=== PATIENT | male | born 2000 | race Caucasian/White ===

== ENCOUNTER 2018-10-07 17:19 | Emergency (ER) | payer BC, SELFPAY ==
[2018-10-07 17:20] VITALS: BP 142/85; PULSE 103; RESP 16; TEMP 36.7; O2SAT 95; BMI 19.0
--- NOTE | 2018-10-07 18:03 | EKG12_ITS ---
Test Reason : SEIZURE Blood Pressure : / mmHG Vent. Rate : 088 BPM Atrial Rate : 088 BPM P-R Int : 162 ms QRS Dur : 104 ms QT Int : 368 ms P-R-T Axes : 072 -24 058 degrees QTc Int : 445 ms Normal sinus rhythm Normal ECG Confirmed by MARISSA BORJAS, CONOR ([id number]), editorial assistant JAMIL ACOSTA ([id number]) on 10/13/2018 9:04:24 AM Referred By: SATYA Confirmed By:CONOR ANN MD
--- NOTE | 2018-10-07 18:03 | CT_ITS ---
STUDY: CT BRAIN WITHOUT CONTRAST REASON FOR EXAM: Male, 18 years old. Seizure. RADIATION DOSAGE (If Supplied By Facility): CTDIvol = ( 44.99 ) mGy, DLP = ( 762.36 ) mGycm TECHNIQUE: Transaxial CT imaging of the brain was performed without administration of intravenous contrast material. Individualized dose optimization techniques were used for this CT. COMPARISON: None. FINDINGS: There is no acute bleed or infarct. There are normal white matter tracts. The ventricles are normal in configuration. There is no hydrocephalus. The visualized paranasal sinuses are clear. The mastoid air cells are well aerated. There is no skull fracture. CT/Brain/Head without Contrast IMPRESSION: No acute intracranial abnormality. Electronically Signed: Jose Julio, at 19:01 EST Tel , Service support ,
--- NOTE | 2018-10-07 18:09 | NURSING ---
NO OLD EKGS
[2018-10-07 18:59] LABS: Absolute Lymphocyte Count 1.22 X10^3/ul (0.83-4.51); Basophil# 0.02 X10^3/uL; Basophil% 0.3 % (0-1); Eosinophil# 0.06 X10^3/uL; Eosinophils% 0.8 % (0-5); Hematocrit 46.6 % (40-54); Hemoglobin 15.8 g/dl (13.0-16.5); Lymphocyte # 1.22 X10^3/ul (4.0); Lymphocyte % 15.7 % (19-41); Mean Corp Hgb Conc 33.9 g/gl (32-36); Mean Corpuscular Hgb 31.4 pg (27.0-32.0); Mean Corpuscular Volume 92.6 fL (80-94); Mean Platelet Vol. 10.4 fl (6.2-12.0); Monocyte% 6.4 % (0-10); Neutrophil # 5.95 X10^3/uL (2.7-7.7); Neutrophil % 76.7 % (47-70); Platelet Count 198 K/mm3 (150-450); RBC Distribution Width CV 12.5 % (11.6-14.6); Red Blood Count 5.03 M/mm3 (4.6-6.2); White Blood Count 7.8 K/mm3 (4.4-11.0)
[2018-10-07 19:02] LABS: POSITIVE COUNT NO; POSITIVE DIFFERENTIAL NO; POSITIVE MORPHOLOGY NO
[2018-10-07 19:06] LABS: International Normalized Ratio 1.1; Prothrombin Time (Protime)PT. 13.8 SECONDS (11.7-14.9)
[2018-10-07 19:07] LABS: Partial Thromboplast Time 26.5 Seconds (24.1-36.2)
[2018-10-07 19:19] LABS: Anion Gap 8 (5-15); BUN 12 mg/dL (7-18); BUN/Creat Ratio 11.9 RATIO (10-20); Calcium,Total 8.9 mg/dL (8.5-10.1); Chloride 106 mmol/L (98-107); Creatinine, Serum 1.01 mg/dL (0.70-1.30); EST Glomerular Filtration Rate 100 mL/min (>60); Est Glom Filt Rate - Afr Amer 121 mL/min (>60); Estimated Creatinine Clearance 104.79 ml/min; Glucose 85 mg/dL (74-106); Potassium 3.9 mmol/L (3.5-5.1); Sodium Level 140 mmol/L (136-145)
[2018-10-07 20:59] VITALS: BP 152/87; PULSE 88; RESP 16; O2SAT 97
[2018-10-07 21:07] LABS: Amphetamine Urine VISTA NEGATIVE (<1000 ng/mL); Barbiturate Urine VISTA NEGATIVE (< 200 ng/mL); Benzodiazepine Urine VISTA NEGATIVE (< 200 ng/mL); Cocaine Urine VISTA NEGATIVE (< 300 ng/mL); Ecstacy Urine VISTA POSITIVE (< 500 ng/mL); Methadone Urine VISTA NEGATIVE (< 300 ng/mL); PCP Urine VISTA NEGATIVE (< 25 ng/mL); THC Urine VISTA POSITIVE (< 50 ng/mL); Vista UDS pH Range 7
--- NOTE | 2018-10-07 21:22 | ED.DCSUM_ITS ---
- ER Visit Summary Date of Service: 10/07/18 Chief Complaint: Seizure History of Present Illness: The patient is a 18 M with apparent seizure. He had a similar episode in June where he was doing homework and he fell off a chair. He never sought medical care at that time. Today he was working at a computer. He tensed up and had shaking for about 3 minutes. He slid out of his chair. He reports decreased sleep and increased stress. Denies any drug use, alcohol, or smoking. He does have a history of depression and takes Wellbutrin. No other symptoms or concerns. Physical Examination: Afebrile and vital signs unremarkable. Alert and oriented. No acute distress. Head and neck are atraumatic. Heart regular. Lungs clear. No focal or lateralizing neurologic abnormalities. Test Results: EKG showed sinus rhythm at a rate of 88. Labs unremarkable. Alcohol negative. CT brain showed no acute process. Emergency Department Course and Treatment: Patient had seizure precautions. It sounds like he probably had a seizure in June and a second seizure today. I am not sure what triggered it but he does take Wellbutrin. Workup was unremarkable. He was discussed with Dr. Corley. We will start K eppra 500 mg twice a day and he should follow-up with him in the office. No driving and seizure precautions were reinforced multiple times. Patient was advised to call his PCP to have his Wellbutrin switched to a new antidepressant. Treatment Plan: As above Disposition: Discharge Impression: 1. Seizure This note was generated with [employer] dictation software. It may contain incorrect words, spelling, and punctuation that were not noted in review of the chart prior to signing ED Disposition - Plan for ED Patient: Referrals: [facility] Doctor,Out of [Primary Care Provider] -
--- NOTE | 2018-10-07 21:22 | ED.DEP ---
ED Disposition - Plan for ED Patient: Instructions: ED Seizure New Onset Unk Cause Prescriptions: Levetiracetam [Keppra] 500 mg PO BID #60 tab Referrals: Craig Corley MD [STAFF PHYSICIAN] -
[2018-10-07] MEDS: levETIRAcetam 500 MG Tablet PO (21:26)
[2018-10-07 21:27] VITALS: BP 147/90; PULSE 80; RESP 16; O2SAT 98
== END 2018-10-07 21:29 | disposition home or self-care (01) ==
PROVIDERS: Emergency Provider Emergency Medicine
DX: R56.9 Unspecified convulsions (principal); F32.9 Major depressive disorder, single episode, unspecified; Z79.899 Other long term (current) drug therapy
CPT/HCPCS: 70450; 80048; 80307; 80320; 84484; 85025; 85610; 85730; 93005; 99285; G0480